=== PATIENT | female | born 2000 | race Caucasian/White ===

== ENCOUNTER 2023-02-13 14:57 | Emergency (ER) | payer OTHER ==
[2023-02-13 15:10] VITALS: BP 104/69; PULSE 85; RESP 18; TEMP 98.4; BMI 31.1
[2023-02-13 16:21] LABS: HCG,QUALITATIVE URINE Positive
[2023-02-13 16:24] LABS: EPI CELLS >36 /uL (0-25.1); HYALINE CASTS 1 /uL (0-3.1); PH,URINE 7.5 (5.0-8.0); URINE APPEARANCE CLEAR; URINE BACTERIA 1116 /uL (0-1359); URINE BILIRUBIN NEGATIVE (NEGATIVE); URINE COLOR YELLOW; URINE GLUCOSE (UA) NEGATIVE (NEGATIVE); URINE KETONE NEGATIVE (NEGATIVE); URINE LEUK ESTERASE 3+ (NEGATIVE); URINE NITRITE NEGATIVE (NEGATIVE); URINE PROTEIN NEGATIVE (NEGATIVE); URINE RBC 9 /uL (0-23.9); URINE UROBILINOGEN 0.2 mg/dL (0.2-1.0); URINE WBC 211 /uL (0-25.8)
== END 2023-02-13 18:29 | disposition home or self-care (01) ==
LOC: JERFT 14:57
DX: O23.41 Unspecified infection of urinary tract in pregnancy, first trimester (principal); Z3A.01 Less than 8 weeks gestation of pregnancy
CPT/HCPCS: 36415; 76817-TC; 81003; 84702; 84703; 86850; 86900; 86901; 87086; 99284-25

== ENCOUNTER 2023-10-07 06:30 | Inpatient (IN) | payer OTHER ==
[2023-10-07 07:57] VITALS: BMI 37.3
[2023-10-07] MEDS ORDERED: OXYTOCIN 30 UNITS in 0.9% NS 30 UNIT/500 ML INFUS.BAG IVPB SCH (08:00)
[2023-10-07] MEDS ORDERED: OXYTOCIN 30 UNITS in 0.9% NS 30 UNIT/500 ML INFUS.BAG IVPB ONE (08:04)
[2023-10-07] MEDS: ELECTROLYTE-148 SOLN 1,000 ML IV SCH (08:32)
[2023-10-07 08:42] LABS: BASO % 0.3 % (0-2.0); EOS % 1.4 % (0-4.5); HEMATOCRIT 33.1 % (32.4-45.2); HEMOGLOBIN 10.9 GM/dL (10.7-15.3); LYMPH % 22.8 % (8-40); MCH 26.7 pg (25.7-33.7); MEAN CELL VOLUME 80.9 fl (80-96); MEAN PLT VOLUME 9.9 fl (7.5-11.1); MONO % 6.7 % (3.8-10.2); NEUT % 68.8 % (42.8-82.8); PLATELET COUNT 223 10^3/uL (134-434); RBC 4.09 M/mm3 (3.60-5.2); RDW 14.4 % (11.6-15.6); WHITE BLOOD COUNT 8.5 K/mm3 (4.0-10.0)
[2023-10-07 08:45] LABS: INR 0.94 (0.83-1.09); PROTHROMBIN TIME (PATIENT) 10.9 SEC (9.7-13.0)
[2023-10-07 08:48] LABS: ACTIVATED PTT 26.9 SECONDS (25.2-36.5)
[2023-10-07 08:58] LABS: BLOOD UREA NITROGEN 9.7 mg/dL (7-18); CALCIUM 9.4 mg/dL (8.5-10.1)
[2023-10-07 09:02] LABS: CREATININE 0.6 mg/dL (0.55-1.3)
[2023-10-07] MEDS ORDERED: FENTANYL/BUPIVACAINE/NS/PF - PCEA - 50 ML DISP.SYRIN EP ONE (10:56)
[2023-10-07] MEDS ORDERED: NALOXONE HCL 0.4 MG/ML VIAL IVPUSH PRN ×2 (10:59→11:34)
[2023-10-07] MEDS ORDERED: FENTANYL/BUPIVACAINE/NS/PF - PCEA - 50 ML DISP.SYRIN EP SCH ×2 (11:00→11:45)
[2023-10-07] MEDS ORDERED: BUPIVACAINE HCL/PF 0.25% (2.5MG/ML) 10 ML VIAL ONE (11:08)
[2023-10-07] MEDS ORDERED: FENTANYL CITRATE/PF 50 MCG/ML VIAL ONE (11:08)
[2023-10-07] MEDS ORDERED: LIDOCAINE HCL/PF 2% SDV 5ML VIAL ONE (11:08)
[2023-10-07] MEDS ORDERED: LIDOCAINE HCL/EPINEPHRINE/PF 10 ML VIAL ONE (11:09)
[2023-10-07] MEDS ORDERED: OXYTOCIN 20 UNITS in 0.9% NS 20 UNIT/1,000 ML INFUS.BAG IV ONE ×2 (13:52→17:15)
[2023-10-07 15:13] LABS: CORD BASE EXCESS -5.1 mmol/L (0-2); CORD PCO2 54.5 mmHg (30-78); CORD pH 7.244 (7.14-7.44)
[2023-10-07 15:21] LABS: CORD BASE EXCESS -4.9 mmol/L (0-2); CORD HCO3 20.9 mmHg (20-29); CORD PCO2 41.2 mmHg (30-78); CORD pH 7.323 (7.14-7.44)
[2023-10-07] MEDS ORDERED: BENZOCAINE 28 GM HEMORRHOIDAL OINTMENT TP PRN (17:30)
[2023-10-07] MEDS ORDERED: BENZOCAINE 20% 57 GM BOTTLE TP PRN (17:30)
[2023-10-07] MEDS ORDERED: METHYLERGONOVINE MALEATE 0.2 MG/1 ML AMP IM PRN (17:30)
[2023-10-07] MEDS ORDERED: BISACODYL 10 MG SUPP.RECT RC PRN (17:30)
[2023-10-07] MEDS ORDERED: WITCH HAZEL 50% (TUCKS) 40 PAD/JAR PAD TP PRN (17:30)
[2023-10-07] MEDS ORDERED: IBUPROFEN 600 MG TABLET (FP) PO PRN (17:30)
[2023-10-07] MEDS ORDERED: OXYTOCIN 20 UNITS in 0.9% NS 20 UNIT/1,000 ML INFUS.BAG IV SCH (17:30)
[2023-10-07] MEDS ORDERED: ACETAMINOPHEN 325 MG TABLET (FP) PO PRN (17:30)
[2023-10-08 08:08] LABS: BASO % 0.3 % (0-2.0); EOS % 0.6 % (0-4.5); HEMOGLOBIN 8.9 GM/dL (10.7-15.3); LYMPH % 17.6 % (8-40); MCH 26.7 pg (25.7-33.7); MEAN CELL VOLUME 81.1 fl (80-96); MEAN PLT VOLUME 10.4 fl (7.5-11.1); MONO % 4.9 % (3.8-10.2); NEUT % 76.6 % (42.8-82.8); PLATELET COUNT 177 10^3/uL (134-434); RBC 3.33 M/mm3 (3.60-5.2); RDW 14.6 % (11.6-15.6); WHITE BLOOD COUNT 11.7 K/mm3 (4.0-10.0)
[2023-10-08] MEDS: FERROUS SO4 325 MG TABLET (FP) PO SCH (15:45)
[2023-10-08] MEDS ORDERED: SENNOSIDES/DOCUSATE COMBO (SENNA PLUS) TABLET (UD) PO PRN (22:00)
[2023-10-09] MEDS: ELECTROLYTE-148 SOLN 1,000 ML IV SCH (08:08)
[2023-10-09] MEDS: FERROUS SO4 325 MG TABLET (FP) PO SCH (08:48)
[2023-10-09 14:02] VITALS: BP 102/65; PULSE 90; RESP 20; TEMP 98.8
== END 2023-10-09 13:40 | disposition home or self-care (01) | DRG 560 ==
LOC: JLDR 06:30 → J3W 17:15
PROVIDERS: ADMIT Obstetrics & Gynecology; ATTEND Obstetrics & Gynecology
PROC: 10E0XZZ Delivery of Products of Conception, External Approach (ICD-10-PCS; principal; 2023-10-07)
PROC: 0KQM0ZZ Repair Perineum Muscle, Open Approach (ICD-10-PCS; 2023-10-07)
PROC: 0W8NXZZ Division of Female Perineum, External Approach (ICD-10-PCS; 2023-10-07)
DX: O70.1 Second degree perineal laceration during delivery (principal); O48.0 Post-term pregnancy; Z3A.40 40 weeks gestation of pregnancy; O99.013 Anemia complicating pregnancy, third trimester; Z37.0 Single live birth
CPT/HCPCS: 36415; 36600; 59025; 76819-TC; 80048; 82803; 85025; 85610; 85730; 86780; 86850; 86900; 86901